=== PATIENT | male | born 1965 | race Caucasian/White ===

== ENCOUNTER → 2016-06-10 | Outpatient (CLI) | payer BC, OTHER ==
[~2016-06-10] MED LIST: EPP3/2 IM
--- NOTE | 2016-06-10 14:47 | DIAGNOSTIC IMAGING REPORT ---
RIGHT KNEE 3 VIEWS CLINICAL HISTORY: RIGHT KNEE PAIN Right pain COMPARISON: None. DISCUSSION: The bones and joint spaces appear intact. There is no evidence of fracture, dislocation or bony disease. There is no evidence for soft tissue swelling. IMPRESSION: Negative study. Electronically signed by: Remigio Brewster M.D. 06/10/2016 2:45 PM Dictated Date/Time: 06/10/2016 2:45 PM
== END | disposition home or self-care (01) ==
LOC: C.RDSM 14:38
PROVIDERS: ATTEND Family Medicine
DX: M25.561 Pain in right knee (principal)